=== PATIENT | male | born 1950 | race Caucasian/White ===

== ENCOUNTER → 2016-09-07 | Day surgery (SDC) | payer OTHER, MEDICARE ==
[~2016-09-07] VITALS: Ht 177.8 cm; Wt 100.7 kg
[~2016-09-07] MED LIST: ALLOPURINOL300 M1 PO; ATORVASTATIN CA10 M1 PO; METFORMIN HCL500 M4 PO
--- NOTE | 2016-09-07 10:08 | Operative Report ---
Operative/Inv Procedure Report Surgery Date: 09/07/16 Name of Procedure: Cystoscopy and transurethral resection of extensive bladder tumor Pre-Operative Diagnosis: Extensive bladder tumor Post-Operative Diagnosis: Same Estimated Blood Loss: 200 cc Surgeon/[employer] Mathematics Teacher: Clifford GRAVES, Leslye RUIZ MD,LESLYE Mccollum Anesthesia: general endotracheal tube Drains: 22 Irish three-way Garcia Specimens: Bladder tumor chips Complications: None Condition: Stable Operative Indication: Extensive bladder tumor found on workup for hematuria Operative/Procedure Note Note: The patient was taken to the cystoscopy room and identified. He is placed in supine position on the cystoscopy table. A timeout was executed appropriately with the patient awake. Gen. anesthesia was induced via an endotracheal tube. He was then placed in the dorsal lithotomy position. Bimanual rectal exam revealed a moderately enlarged prostate. The bladder mass could not be palpable. He was then prepped and draped in usual fashion for cystoscopy. A 22 Irish cystoscope sheath was placed into the bladder under direct vision using the 30 lens after dilating the fossa navicularis to 30 Irish. The remainder of the urethra was normal. The prostatic urethra showed bilateral lateral lobe hypertrophy with partial bladder outlet obstruction. Upon entering the bladder and extensive bladder tumor was seen originating from the right lateral wall of the bladder. There were some satellite lesions noted on the posterior wall. The left side of the bladder was relatively spared. Ureteral orifices normal in location and appearance. The right ureteral orifice was extremely close to the medial extent of the bladder tumor. The bladder was left full and the cystoscope removed. A 26 Irish resectoscope sheath was placed into the bladder using the obturator. The working element was inserted and a transurethral resection of bladder tumor was begun. This was quite time consuming as the tumor was extensive, over 5 cm in size. Eventually the bladder tumor. The completely resected. The Ellik evacuator was used to remove all bladder tumors bladder. At this point the base of the bladder tumor which was a wide area was cauterized. No significant bleeding was noted at this time. Ureteral orifices were preserved and the procedure. The bladder was left full and resectoscope removed. A 22 Irish three-way Garcia catheter was inserted. Continuous bladder irrigation was begun with clear drainage. Findings: Extensive bladder tumor originating from the right lateral wall bladder Discharge Disposition: PACU
== END ==
LOC: STS 02:19
DX: C67.8 Malignant neoplasm of overlapping sites of bladder (principal); N40.0 Benign prostatic hyperplasia without lower urinary tract symptoms; Z85.118 Personal history of other malignant neoplasm of bronchus and lung; Z87.891 Personal history of nicotine dependence; E11.9 Type 2 diabetes mellitus without complications; Z79.84 Long term (current) use of oral hypoglycemic drugs; E66.9 Obesity, unspecified; Z68.31 Body mass index [BMI] 31.0-31.9, adult
CPT/HCPCS: 88307; J0131; J0690; J2250